=== PATIENT | female | born 1995 | race Caucasian/White ===

== ENCOUNTER → 2019-11-10 | Outpatient (CLI) | payer MEDICAID ==
[2019-11-10 13:42] LABS: EOS # 0.4 (0.04-0.40); EOS % 3.2 % (1.0-5.0); HEMATOCRIT 48.9 % (37.0-47.0); HEMOGLOBIN 16.3 g/dL (12.5-16.0); MEAN CELL VOLUME 91 fl (78-100); MEAN CORPUSCULAR HEMOGLOBIN 30 pg (27-31); MEAN CORPUSCULAR HGB CONC 33 g/dL (33-37); MEAN PLATELET VOLUME 11.4 fl (7.4-10.4); MONO # 0.7 (0.20-0.80); NEU # 5.7 (1.40-6.50); PLATELET COUNT 249 K/mm3 (130-400); RED BLOOD COUNT 5.38 M/mm3 (4.10-5.30); WHITE BLOOD COUNT 10.8 K/mm3 (4.8-10.8)
[2019-11-10 14:03] LABS: ALBUMIN 4.5 g/dL (3.5-5.0); POTASSIUM 4.1 mmol/L (3.5-5.1)
[2019-11-10 14:05] LABS: CALCIUM 9.9 mg/dL (8.3-10.5)
[2019-11-10 14:06] LABS: TOTAL PROTEIN 7.8 g/dL (6.4-8.3)
[2019-11-10 14:08] LABS: TOTAL BILIRUBIN 0.2 mg/dL (0.2-1.2)
== END ==
LOC: LAB 13:12
PROVIDERS: Physician Assistant
DX: N92.0 Excessive and frequent menstruation with regular cycle (principal)